=== PATIENT | female | born 2000 | race African-American/Black ===

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

== ENCOUNTER 2024-08-19 01:44 | Emergency (ER) | payer MEDICAID ==
[2024-08-19] MEDS ORDERED: Ondansetron ODT 4 MG TAB ONE (01:58)
== END 2024-08-19 04:03 | disposition home or self-care (01) ==
LOC: ERS 01:44
DX: J20.9 Acute bronchitis, unspecified (principal)
CPT/HCPCS: 71045; 87428; Q0162